=== PATIENT | male | born 1960 | race American Indian/Alaskan Native ===

== ENCOUNTER 2017-02-26 17:51 | Emergency (ER) | payer MEDICAID ==
--- NOTE | 2017-02-26 17:55 | EDM.PDOC ---
ED HPI GENERAL MEDICAL PROBLEM - General Chief Complaint: General Stated Complaint: fall Time Seen by Provider: 02/26/17 17:55 Source of Information: Reports: Patient, EMS, Old Records ([facility] EMR. No paper hospital chart available.). Denies: EMS Notes Reviewed (Not available) History Limitations: Reports: No Limitations - History of Present Illness INITIAL COMMENTS - FREE TEXT/NARRATIVE: The patient was brought to the emergency room via ambulance with feeder catcher tobacco accompaniment with saline lock started in route but no other treatment given prior to arrival. The patient was leaving his friend's house in [place] at about 14:00 hours yesterday afternoon when he tripped and twisted his left leg falling onto the soft ground and resulting in a probable hip fracture. His friend dragged him into the house with the patient laying on the couch until he called the ambulance this afternoon. He has not taken any medications for his symptoms to this point. He has not been able to ambulate on this leg. The patient rates his discomfort at 9/10 sharp in nature. The patient denies any chest pain/pressure, heart flutter, dizziness, orthostasis, orthopnea, diaphoresis, paresthesias, recent decreased exercise tolerance, or any other anginal-type symptoms. No recent history of abdominal pain, heartburn, nausea, diarrhea, melena, gross hematochezia, or any food intolerance, including fatty foods, etc.. Last Oral intake yesterday evening, including both solids and fluids. The patient also denies any recent fever, cough, wheezing, dyspnea, etc.. He denies any significant fall, head injury, loss of consciousness, change in mental status, headaches, visual changes, nausea/emesis, neck/back pain, paresthesias, neurological deficits, or other complaints or injuries. Onset: Sudden Onset Date: 02/25/17 Onset Time: 14:00 Duration: Constant Location: Reports: Lower Extremity, Left. Denies: Head, Face, Neck, Chest, Abdomen, Back, Pelvis, Upper Extremity, Left, Upper Extremity, Right, Lower Extremity, Right, Generalized, Radiates to Quality: Reports: Sharp Severity: Severe Improves with: Reports: Rest Worsens with: Reports: Movement Context: Reports: Trauma (As above) Associated Symptoms: Denies: Confusion, Chest Pain, Cough, Diaphoresis, Fever/ Chills, Headaches, Loss of Appetite, Malaise, Nausea/Vomiting, Seizure, Shortness of Breath, Syncope, Weakness Treatments AND RESCUE FIRE FIGHTER CRASH FIRE: Reports: IV/IO Left Hip Pain Score (Numeric/FACES): 9 - Related Data Allergies Allergy/AdvReac Type Severity Reaction Status Date / Time No Known Allergies Allergy Verified 02/26/17 17:52 Home Meds: Home Meds . [No Known Home Meds] 02/26/17 [History] Past Medical History HEENT History: Reports: None. Denies: Allergic Rhinitis, Cataract, Glaucoma, Hard of Hearing, Impaired Vision, Macular Degeneration, Retinal Detachment Cardiovascular History: Reports: None. Denies: Afib, Aneurysm, Arrhythmia, Blood Clots/VTE/DVT, CAD, Heart Murmur, High Cholesterol, Hypertension, NC, PVD , Syncope Respiratory History: Reports: COPD, Pulmonary Fibrosis, Other (See Below). Denies: Asthma, Bronchitis, Recurrent, Intubation, Previous, PE, Pneumothorax, Sleep Apnea Other Respiratory History: COPD and pulmonary fibrosis by chest x-ray with long history of tobacco use Gastrointestinal History: Reports: None. Denies: Bowel Obstruction, Celiac Disease, Cholelithiasis, Chronic Constipation, Chronic Diarrhea, Fecal Incontinence, Gastritis, GERD, GI Bleed, Hepatitis, Inflammatory Bowel Disease, Irritable Bowel Syndrome, Jaundice, Pancreatitis, PUD Genitourinary History: Reports: None. Denies: BPH, Chronic Renal Insuffiency, Dialysis, Renal Calculus, Retention, Urinary, STD, Urinary Incontinence, UTI, Recurrent Musculoskeletal History: Reports: Arthritis, Back Pain, Chronic, Fracture, Neck Pain, Chronic, Osteoarthritis, RA, Other (See Below). Denies: Amputation, Gout Other Musculoskeletal History: biateral metacarpal fractures sites unknown at about age 20 Neurological History: Reports: None, Headaches, Chronic, Migraines. Denies: Brain Injury, Cerebral Aneurysms, Concussion, CVA, Head Trauma, MS, Neuropathy, Diabetic, Neuropathy, Peripheral, Parkinson's, Seizure, TIA Psychiatric History: Reports: Addiction, Other (See Below). Denies: Abuse, Victim of, ADD, ADHD, Anxiety, Depression, Psych Hospitalization(s), PTSD, Suicide Attempt, Suicidal Ideation Other Psychiatric History: Alcohol abuse in the past as below Endocrine/Metabolic History: Reports: None. Denies: Diabetes, Type I, Diabetes , Type II, Hypothyroidism, IDDM Hematologic History: Reports: None. Denies: Anemia, Blood Transfusion(s), Iron Deficiency Immunologic History: Reports: None. Denies: AIDS, HIV, SLE Oncologic (Cancer) History: Reports: None. Denies: Basal Cell Carcinoma, Hodgkin's Lymphoma, Leukemia, Lymphoma, Malignant Melanoma, Non-Hodgkin's Lymphoma, Squamous Cell Carcinoma Dermatologic History: Reports: None. Denies: Eczema, Psoriasis - Infectious Disease History Infectious Disease History: Reports: Chicken Pox, Measles, Mumps. Denies: C- Difficile, Meningitis, Mononucleosis, MRSA, Pertussis (Whooping Cough), Rheumatic Fever, Rubella, Scarlet Fever, VRE - Past Surgical History Head Surgeries/Procedures: Reports: None HEENT Surgical History: Reports: Other (See Below). Denies: Adenoidectomy, Cataract Surgery, Eye Surgery, Laser Surgery, LASIK, Naso-Sinus Surgery, Oral Surgery, Tonsillectomy Other HEENT Surgeries/Procedures: Complete teeth extraction Cardiovascular Surgical History: Denies: Varicose, Vascular Surgery Respiratory Surgical History: Reports: None. Denies: Thoracentesis GI Surgical History: Reports: None. Denies: Appendectomy, Cholecystectomy, Colonoscopy, EGD, Hernia, Abdominal, Hernia, Inguinal, Hernia Repair/Other, Lysis of Adhesions Male Surgical History: Denies: Circumcision, TURP-Transurethral Resection of Prostate, Vasectomy Endocrine Surgical History: Reports: None. Denies: Thyroid Biopsy Neurological Surgical History: Reports: None. Denies: C-Spine, Discectomy, Intracranial, Laminectomy, Lumbar Spine, Sacral Spine, Spinal Fusion, Vertebroplasty Musculoskeletal Surgical History: Denies: Arthroscopic Knee, Arthroscopic Procedure, Carpal Tunnel, Ganglion Cyst, Joint Replacement, Knee Replacement, ORIF Oncologic Surgical History: Reports: None Dermatological Surgical History: Reports: None Social & Family History - Tobacco Use Smoking Status *Q: Current Every Day Smoker Tobacco Use Within Last Twelve Months: Cigarettes Years of Tobacco use: 39 Packs/Tins Daily: 1 (Heart is smoking at age 17) Used Tobacco, but Quit: No Smoking Cessation Information Provided To Patient: Yes - Caffeine Use Caffeine Use: Reports: Coffee (6 cups per day), Soda (Occasional). Denies: Energy Drinks, Tea - Alcohol Use Alcohol Use History: Yes Days Per Week of Alcohol Use: 0 (DWI at age 50 with previous alcohol treatment with alcohol abuse in his 20s and last alcohol treatment at age 47) Number of Drinks Per Day: 5 (Usually mixed drinks) Total Drinks Per Week: 0 Alcohol Use in Last Twelve Months: Yes - Living Situation & Occupation Living situation: Reports: Single (No children), Alone Occupation: Disabled (For unknown reason) ED ROS GENERAL - Review of Systems Review Of Systems: ROS reveals no pertinent complaints other than HPI. ED EXAM, GENERAL - Physical Exam Exam: See Below Exam Limited By: No Limitations General Appearance: Alert, WD/WN, No Apparent Distress Eye Exam: Bilateral Eye: EOMI, Normal Inspection (No nystagmus), Periorbital Changes Ears: Normal External Exam, Normal Canal, Hearing Grossly Normal, Normal TMs Nose: Normal Inspection, Normal Mucosa, No Blood Throat/Mouth: Normal Inspection, Normal Lips, Normal Gums, Normal Oropharynx, Normal Voice, No Airway Compromise. No: Normal Teeth (Complete absent dentition with no dentures), Dysphagia, Perioral Cyanosis Head: Atraumatic, Normocephalic. No: Facial Swelling, Facial Tenderness, Sinus Tenderness Neck: Normal Inspection, Supple, Non-Tender, Full Range of Motion. No: Carotid Bruit, Lymphadenopathy (L), Lymphadenopathy (R), Thyromegaly Respiratory/Chest: No Respiratory Distress, Lungs Clear, Normal Breath Sounds, No Accessory Muscle Use, Chest Non-Tender. No: Pleural Rub, Retractions Cardiovascular: Normal Peripheral Pulses, Regular Rate, Rhythm, No Edema, No Gallop, No JVD, No Murmur, No Rub. No: Gallop/S3, Gallop/S4, Friction Rub Peripheral Pulses: 1+: Dorsalis Pedis (L), Dorsalis Pedis (R), 2+: Radial (L), Radial (R) GI/Abdominal: Normal Bowel Sounds, Soft, Non-Tender, No Organomegaly, No Distention, No Abnormal Bruit, No Mass, Pelvis Stable. No: Guarding (Male) Exam: Deferred Rectal (Males) Exam: Deferred Back Exam: Normal Inspection, Full Range of Motion. No: CVA Tenderness (L), CVA Tenderness (R), Muscle Spasm Extremities: No Pedal Edema, Normal Capillary Refill, Leg Pain (With movement), Limited Range of Motion (Secondary to left hip fracture), Other (Outer rotation and leg shortening of the left leg with moderate palpation pain and obvious deformity of the proximal femur). No: Giovanni's Sign Neurological: Alert, Oriented, CN II-XII Intact, Normal Cognition, Normal Gait, Normal Reflexes (Negative Babinski's), No Motor/Sensory Deficits Psychiatric: Normal Affect Skin Exam: Warm, Dry, Intact, Normal Color, No Rash. No: Wound/Incision Lymphatic: No Adenopathy Course - Vital Signs Last Recorded V/S: Last Vital Signs Temp 37.8 C 02/26/17 18:00 Pulse 93 02/26/17 18:00 Resp 18 02/26/17 18:00 BP 146/87 H 02/26/17 18:00 Pulse Ox 98 02/26/17 18:00 - Orders/Labs/Meds Orders: Active Orders 24 hr Category Date Time Status Hip Min 2V or 3V w Pelvis Lt [CR] Stat Exams 02/26/17 18:05 Taken OCCULT BLOOD, GASTRIC [OP] Routine Lab 02/26/17 19:13 Uncollected Obtain Past Medical Record [OM.PC] Routine Oth 02/26/17 18:05 Active Labs: Laboratory Tests 02/26/17 02/26/17 02/26/17 Range/Units 18:20 18:20 18:20 WBC 8.7 (4.0-10.2) K/uL RBC 5.28 (4.33-5.41) M/uL Hgb 15.4 (13.1-16.8) g/dL Hct 45.0 (39.0-49.0) % MCV 85.2 D (84.0-98.0) fL MCH 29.2 (28.2-33.3) pg MCHC 34.2 (31.7-36.0) g/dL RDW 14.7 H (11.2-14.1) % Plt Count 288 D (150-350) K/uL Neut % (Auto) 66.6 (45.0-80.0) % Lymph % (Auto) 18.2 (10.0-50.0) % Piatt % (Auto) 14.6 H (2.0-14.0) % Eos % (Auto) 0.1 (0.0-5.0) % Baso % (Auto) 0.5 (0.0-2.0) % Neut # (Auto) 5.81 (1.40-7.00) K/uL Lymph # (Auto) 1.59 (0.50-3.50) K/uL Piatt # (Auto) 1.27 H (0.00-1.00) K/uL Eos # (Auto) 0.01 (0.00-0.50) K/uL Baso # (Auto) 0.04 (0.00-0.20) K/uL PT 10.0 (9.8-11.7) SEC INR 0.9 APTT 25.6 (23.5-30.0) SEC Sodium 138 (136-145) mmol/L Potassium 4.2 (3.5-5.1) mmol/L Chloride 99 (98-107) mmol/L Carbon Dioxide 26.7 (21.0-32.0) mmol/L BUN 14 (7-18) mg/dL Creatinine 0.65 (0.51-1.17) mg/dL Est Cr Clr Drug Dosing TNP Estimated GFR (MDRD) > 60 mL/min Glucose 182 H (74-106) mg/dL Hemoglobin A1c (4.3-5.7) % Calcium 8.9 (8.5-10.1) mg/dL Total Bilirubin 1.2 H (0.2-1.0) mg/dL AST 32 (15-37) U/L ALT 33 (12-78) U/L Alkaline Phosphatase 128 H (46-116) IU/L Total Protein 8.0 (6.4-8.2) g/dL Albumin 3.6 (3.4-5.0) g/dL 02/26/17 Range/Units 19:20 WBC (4.0-10.2) K/uL RBC (4.33-5.41) M/uL Hgb (13.1-16.8) g/dL Hct (39.0-49.0) % MCV (84.0-98.0) fL MCH (28.2-33.3) pg MCHC (31.7-36.0) g/dL RDW (11.2-14.1) % Plt Count (150-350) K/uL Neut % (Auto) (45.0-80.0) % Lymph % (Auto) (10.0-50.0) % Piatt % (Auto) (2.0-14.0) % Eos % (Auto) (0.0-5.0) % Baso % (Auto) (0.0-2.0) % Neut # (Auto) (1.40-7.00) K/uL Lymph # (Auto) (0.50-3.50) K/uL Piatt # (Auto) (0.00-1.00) K/uL Eos # (Auto) (0.00-0.50) K/uL Baso # (Auto) (0.00-0.20) K/uL PT (9.8-11.7) SEC INR APTT (23.5-30.0) SEC Sodium (136-145) mmol/L Potassium (3.5-5.1) mmol/L Chloride (98-107) mmol/L Carbon Dioxide (21.0-32.0) mmol/L BUN (7-18) mg/dL Creatinine (0.51-1.17) mg/dL Est Cr Clr Drug Dosing Estimated GFR (MDRD) mL/min Glucose (74-106) mg/dL Hemoglobin A1c 5.8 H (4.3-5.7) % Calcium (8.5-10.1) mg/dL Total Bilirubin (0.2-1.0) mg/dL AST (15-37) U/L ALT (12-78) U/L Alkaline Phosphatase (46-116) IU/L Total Protein (6.4-8.2) g/dL Albumin (3.4-5.0) g/dL Meds: Medications Discontinued Medications Generic Name Dose Route Start Last Admin Trade Name Udayq PRN Reason Stop Dose Admin Famotidine 40 mg 02/26/17 19:14 02/26/17 20:05 Pepcid IVPUSH 02/26/17 19:15 40 mg ONETIME ONE Administration Fentanyl 50 mcg 02/26/17 18:34 02/26/17 18:39 Sublimaze IVPUSH 02/26/17 18:35 50 mcg ONETIME ONE Administration Fentanyl 50 mcg 02/26/17 20:16 02/26/17 20:32 Sublimaze IVPUSH 02/26/17 20:17 50 mcg ONETIME ONE Administration Metoclopramide HCl 10 mg 02/26/17 19:13 02/26/17 20:05 Reglan IVPUSH 02/26/17 19:14 10 mg ONETIME ONE Administration Ondansetron HCl 4 mg 02/26/17 18:34 02/26/17 18:39 Zofran IVPUSH 02/26/17 18:35 4 mg ONETIME ONE Administration Pantoprazole Sodium 40 mg 02/26/17 19:14 02/26/17 20:05 Protonix Iv IVPUSH 02/26/17 19:15 40 mg ONETIME ONE Administration Departure - Departure Time of Disposition: 20:55 Disposition: DC/Tfer to Acute Hospital 02 Condition: Good Clinical Impression: Alcohol abuse Closed left hip fracture Qualifiers: Encounter type: initial encounter Qualified Code(s): S72.002A - Fracture of unspecified part of neck of left femur, initial encounter for closed fracture Rheumatoid arthritis Qualifiers: Rheumatoid arthritis location: multiple sites Rheumatoid factor presence: unspecified presence Qualified Code(s): M06.9 - Rheumatoid arthritis, unspecified COPD (chronic obstructive pulmonary disease) Qualifiers: COPD type: emphysema Emphysema type: panlobular Qualified Code(s): J43.1 - Panlobular emphysema Hematemesis Qualifiers: Nausea presence: with nausea Qualified Code(s): K92.0 - Hematemesis - Discharge Information Forms: ED Department Discharge, Interfacility Transfer EMTALA Additional Instructions: Ambulance transfer - Problem List & Annotations (1) COPD (chronic obstructive pulmonary disease) SNOMED Code(s): 56191912 Code(s): J44.9 - CHRONIC OBSTRUCTIVE PULMONARY DISEASE, UNSPECIFIED Status : Chronic Priority: Medium Annotation/Comment:: No recent history of fever or bronchitic type symptoms. Note chronic tobacco use Qualifiers: COPD type: emphysema Emphysema type: panlobular Qualified Code(s): J43.1 - Panlobular emphysema (2) Closed left hip fracture SNOMED Code(s): 424879739 Code(s): S72.002A - FRACTURE OF UNSP PART OF NECK OF LEFT FEMUR, INIT Status: Acute Priority: High Onset Date: 02/25/17 Annotation/Comment:: Note delayed evaluation in this facility as above. Telephone consultation at 18: [address] Zafar, orthopedic surgeon, who does accept the patient for direct admission to their facility. Patient was kept nothing by mouth other than medications prior to transfer and has not had any oral intake since yesterday as above. No further treatment recommendations given. Note that Dr. Zafar does agree to notify their hospitalist concerning patient history and recommended admission to their services. Aggressive pain control in the emergency room as above. Ambulance transfer with feeder catcher tobacco accompaniment. Delay in transport of the patient secondary to lack of ambulance availability without sequelae. Qualifiers: Encounter type: initial encounter Qualified Code(s): S72.002A - Fracture of unspecified part of neck of left femur, initial encounter for closed fracture (3) Hematemesis SNOMED Code(s): 8432646 Code(s): K92.0 - HEMATEMESIS Status: Acute Qualifiers: Nausea presence: with nausea Qualified Code(s): K92.0 - Hematemesis; R11.0 - Nausea (4) Rheumatoid arthritis SNOMED Code(s): 90058543 Code(s): M06.9 - RHEUMATOID ARTHRITIS, UNSPECIFIED Status: Acute Qualifiers: Rheumatoid arthritis location: multiple sites Rheumatoid factor presence: unspecified presence Qualified Code(s): M06.9 - Rheumatoid arthritis, unspecified (5) Alcohol abuse SNOMED Code(s): 75180097 Code(s): F10.10 - ALCOHOL ABUSE, UNCOMPLICATED Status: Chronic Priority: Medium Annotation/Comment:: Alcohol abuse in the past as above, which the patient denies being a current problem - Problem List Review Problem List Initiated/Reviewed/Updated: Yes - My Orders Last 24 Hours: My Active Orders 02/26/17 18:05 Hip Min 2V or 3V w Pelvis Lt [CR] Stat Obtain Past Medical Record [OM.PC] Routine 02/26/17 19:13 OCCULT BLOOD, GASTRIC [OP] Routine - Assessment/Plan Last 24 Hours: My Active Orders 02/26/17 18:05 Hip Min 2V or 3V w Pelvis Lt [CR] Stat Obtain Past Medical Record [OM.PC] Routine 02/26/17 19:13 OCCULT BLOOD, GASTRIC [OP] Routine Assessment:: As above Plan: As above. Extensive precautions were given to the patient, who is in agreement with the treatment plan. Ambulance transfer with feeder catcher tobacco accompaniment
[2017-02-26] MEDS ORDERED: fentaNYL 100 MCG/2 ML SDV IVPUSH ONE ×2 (18:34→20:16)
[2017-02-26] MEDS ORDERED: Ondansetron 4 MG/2 ML SDV IVPUSH ONE (18:34)
[2017-02-26 18:45] LABS: CHLORIDE,CL 99 mmol/L (98-107); SODIUM,NA 138 mmol/L (136-145)
[2017-02-26] MEDS ORDERED: Metoclopramide 10 MG/2 ML SDV IVPUSH ONE (19:13)
[2017-02-26] MEDS ORDERED: Famotidine 20 MG/2 ML SDV IVPUSH ONE (19:14)
[2017-02-26] MEDS ORDERED: Pantoprazole 40 MG Vial IVPUSH ONE (19:14)
[2017-02-26 23:02] VITALS: BP 157/89
== END 2017-02-26 20:50 ==
LOC: LL.ED 17:51
DX: S72.142A Displaced intertrochanteric fracture of left femur, initial encounter for closed fracture (principal); M06.9 Rheumatoid arthritis, unspecified; J43.1 Panlobular emphysema; K92.0 Hematemesis; F17.210 Nicotine dependence, cigarettes, uncomplicated; X50.1XXA Overexertion from prolonged static or awkward postures, initial encounter; F10.10 Alcohol abuse, uncomplicated
CPT/HCPCS: 36415; 73502; 80053; 82271; 83036; 85025; 85610; 85730; 96374; 96375; 96376; 99285; C9113; J2405; J2765; J3010; S0028